=== PATIENT | female | born 1960 | race Hispanic/Latino ===

== ENCOUNTER 2018-08-29 10:38 | Outpatient (CLI) | payer MEDICARE ==
--- NOTE | 2018-08-30 14:09 | PET Report ---
PET/CT:08/29/18 10:38:00 CLINICAL: Breast cancer restaging. RADIOPHARMACEUTICAL: 14.405mCi F18-FDG. COMPARISON: 10/14/15 PET/CT TECHNIQUE- Following intravenous injection of F-18 FDG and an approximately 60 minute uptake period, CT and PET images from the mid skull to the upper thighs were acquired with the patient in the fasted state. No contrast was administered. The CT protocol used for this PET CT study is designed for attenuation correction and anatomic localization of PET abnormalities. This specimen preparation assistant CT is not desired to produce and cannot replace, [id number] diagnostic CT scans with specific imaging protocols for different body parts and indications. Plasma glucose at the time of this test: 86g/dl. The standardized uptake values (SUV) are normalized to patient body weight and indicate the highest activity concentration (SUV max) in a given disease site. FINDINGS: Brain--Physiologic FDG uptake in the visualized regions of the brain. Neck--Physiologic FDG uptake in mucosal structures. No mass or lymphadenopathy. Chest--Physiologic FDG uptake in mediastinal blood pool and myocardium. Status post bilateral mastectomy. No chest wall mass. Lungs--No abnormal uptake. No pulmonary nodule or mass. A previously described cavitary lesion of the right upper lobe has been resected. Benign right upper lobe post surgical scarring. Mild bilateral upper lobe peripheral blebs. Pleura/pericardium--No abnormal uptake. Thoracic nodes--No abnormal uptake. Hepatobiliary--No abnormal uptake. Liver background SUV mean, as a reference for comparing FDG studies, is 1.8 compared to 1.9 on the last exam. No liver mass. Spleen--No abnormal uptake. Pancreas--No abnormal uptake. Adrenal Glands--No abnormal uptake. Kidneys/Ureters/Bladder--No abnormal uptake. Abdominopelvic Nodes--No abnormal uptake. Bowel/Peritoneum/Mesentery--No abnormal uptake. Physiologic uptake in the sigmoid colon. Pelvic organs--No abnormal uptake. Bones/Soft Tissues--No abnormal uptake and no suspicious bone lesion. IMPRESSION- Negative study with no evidence of disease recurrence or metastasis.
== END 2018-08-29 10:39 | disposition home or self-care (01) ==
LOC: PET 10:38
PROVIDERS: ATTEND Internal Medicine Hematology & Oncology
DX: C50.411 Malignant neoplasm of upper-outer quadrant of right female breast (principal); K21.9 Gastro-esophageal reflux disease without esophagitis; J44.9 Chronic obstructive pulmonary disease, unspecified; F17.210 Nicotine dependence, cigarettes, uncomplicated; Z86.2 Personal history of diseases of the blood and blood-forming organs and certain disorders involving the immune mechanism
CPT/HCPCS: 78815; 82962; A9552

== ENCOUNTER 2019-09-15 11:12 | Outpatient (CLI) | payer MEDICARE ==
[2019-09-15 12:46] LABS: Blood Urea Nitrogen 13 mg/dL (7-17)
--- NOTE | 2019-09-15 15:27 | Cat Scan Report ---
CT CHEST, ABDOMEN, AND PELVIS WITH IV CONTRAST INDICATION: C50.41Malignant neoplasm of upper-outer quadrant of breast Omnipaque 300 / 100ml's was used for this exam.. COMPARISON: CT/PET 08/29/2018. TECHNIQUE: All CT scans at this location are performed using CT dose reduction for ALARA by means of automated e xposure control. Axial CT images were obtained through the chest, abdomen, and pelvis after IV contrast. FINDINGS: Skeletal System: No acute abnormality. CHEST: Heart: Heart size is normal. There is trace pericardial fluid. Thoracic Aorta: No acute abnormality. Mediastinum & Susan: There are couple shotty nodes in the AP window. No pathologically enlarged nodes. Lungs: There is patchy subpleural scarring within both lungs, right greater than left. Mild emphysema tous changes are noted. There is mild peribronchial cuffing within the lower lobes, greatest on the l eft. Pleura: No significant pleural effusion. No pneumothorax. Airways: No significant abnormality. Additional Findings: None. ABDOMEN: Liver: No significant abnormality. Gallbladder: No significant abnormality. Bile Ducts: No significant abnormality. Pancreas: No significant abnormality. Spleen: There is a punctate cyst in the superior parenchyma (series 3 image 15). Spleen is otherwise unremarkable. Adrenals: No significant abnormality. Right Kidney and Proximal Ureter: No significant abnormality. Left Kidney and Proximal Ureter: No significant abnormality. Stomach and Bowel: No significant abnormality. Lymph Nodes: No significant adenopathy. Aorta: No significant abnormality. IVC: No significant abnormality. Additional Findings: None. PELVIS: Urinary Bladder and Distal Ureters: No significant abnormality. Appendix: No significant abnormality. Colon: No significant abnormality. Free Fluid: None. Lymph Nodes: No significant adenopathy. Additional Findings: None. IMPRESSION: 1. No CT evidence of metastatic disease within the chest, abdomen, or pelvis. 2. Areas of postinflammatory scarring in the lungs, greatest in the right upper lobe. There are also mild chronic emphysematous type changes. 3. Trace pericardial fluid. Additional, incidental findings as above. Signer Name: Dinh Romero MD Signed: 09/15/2019 3:22 PM Workstation Name: [id number]
== END 2019-09-15 11:13 | disposition home or self-care (01) ==
LOC: CT 11:12
PROVIDERS: ATTEND Internal Medicine Hematology & Oncology
DX: C50.411 Malignant neoplasm of upper-outer quadrant of right female breast (principal); J43.8 Other emphysema
CPT/HCPCS: 36415; 71260; 74177; 82565; 84520; Q9967